=== PATIENT | female | born 1950 | race Two or more races ===

== ENCOUNTER 2018-01-31 19:53 | Emergency (ER) | payer MEDICARE, OTHER ==
[~2018-01-31] VITALS: Ht 154.9 cm; Wt 76.2 kg
[~2018-01-31 19:53] MED LIST: CODACE30 PO; ERYT250 PO; FEMRING
== END 2018-01-31 20:50 | disposition home or self-care (01) ==
LOC: ER 19:53
DX: M79.672 Pain in left foot (principal); Z88.8 Allergy status to other drugs, medicaments and biological substances; Z88.5 Allergy status to narcotic agent; Z79.899 Other long term (current) drug therapy
CPT/HCPCS: 73630; 99283-25

== ENCOUNTER → 2019-06-22 | Outpatient (CLI) | payer MEDICARE, OTHER | END | disposition home or self-care (01) | LOC: LAB SHORT 14:50 → LAB 14:50 | DX: L08.9 Local infection of the skin and subcutaneous tissue, unspecified (principal) | CPT/HCPCS: 87070; 87205 ==